=== PATIENT | female | born 1955 | race Caucasian/White ===

== ENCOUNTER 2017-04-22 06:51 | Day surgery (SDC) | payer BC ==
[2017-04-19 11:32] VITALS: BMI 22.6
[2017-04-22] MEDS ORDERED: PROPOFOL 20 ML ONE ×2 (07:59)
[2017-04-22] MEDS ORDERED: LIDOCAINE HCL 2% (20ML MULTI-DOSE VIAL) NR ONE (07:59)
[2017-04-22 08:48] VITALS: TEMP 97.6
[2017-04-22 08:52] VITALS: PULSE 60
[2017-04-22 09:31] VITALS: BP 125/77
--- NOTE | 2017-04-23 11:01 | PATH ---
Surgical Pathology Report Patient Name: DAVINA WATSON [facility]. Rec. #: [id number] /Age/Gender: 1955 (Age: 61) / F Account: [id number] Location: [facility]-ENDOSCOPY Taken: 04/22/2017 Received: 04/22/2017 Reported: 04/23/2017 Physicians: Gulshan Newton M.D. Specimen(s) Received RECTAL POLYP Clinical History Preoperative diagnosis: Screening Postoperative diagnosis: Rectal polyp, diverticulosis Final Diagnosis COLON, RECTUM, BIOPSY: HYPERPLASTIC POLYP. Electronically Signed Juan Chaudhary M.D. Gross Description Received in formalin, labeled "biopsy rectal polyp" are 2 kerns, irregular portions of soft tissue measuring 0.1 and 0.2 cm. in greatest dimension. The specimens are submitted in toto in one cassette. 04/22/201704/22/2017
== END 2017-04-22 09:55 | disposition home or self-care (01) ==
LOC: JASU-ENDO 06:51
PROVIDERS: ATTEND Internal Medicine Gastroenterology
PROC: 0DBP8ZX Excision of Rectum, Via Natural or Artificial Opening Endoscopic, Diagnostic (ICD-10-PCS; principal; 2017-04-22 08:00)
DX: Z12.11 Encounter for screening for malignant neoplasm of colon (principal); K63.5 Polyp of colon; K57.30 Diverticulosis of large intestine without perforation or abscess without bleeding; K64.8 Other hemorrhoids
CPT/HCPCS: 88305-TC